=== PATIENT | male | born 1990 | race African-American/Black ===

== ENCOUNTER 2018-09-30 07:21 | Emergency (ER) | payer BC, SELFPAY ==
[2018-09-30] MEDS ORDERED: Ketorolac Tromethamine 30 MG/ML VIAL ONE (07:57)
== END 2018-09-30 08:20 | disposition home or self-care (01) ==
LOC: ERS 07:21
DX: K04.7 Periapical abscess without sinus (principal); K02.9 Dental caries, unspecified
CPT/HCPCS: 96372; J1885

== ENCOUNTER 2021-11-09 20:14 | Emergency (ER) | payer BC ==
[2021-11-09] MEDS ORDERED: Boostrix 0.5 ML (Tdap) VIAL ONE (22:23)
== END 2021-11-09 22:32 | disposition home or self-care (01) ==
LOC: ERS 20:14
DX: S01.111A Laceration without foreign body of right eyelid and periocular area, initial encounter (principal); W26.8XXA Contact with other sharp object(s), not elsewhere classified, initial encounter
CPT/HCPCS: 12011; 90471; 90715

== ENCOUNTER 2023-03-15 18:47 | Emergency (ER) | payer SELFPAY ==
[2023-03-15] MEDS ORDERED: Bicillin LA 1.2 MILLION UNITS/2 ML SYRINGE ONE (20:45)
== END 2023-03-15 21:17 | disposition home or self-care (01) ==
LOC: ERS 18:47
DX: J02.0 Streptococcal pharyngitis (principal); R07.0 Pain in throat; F17.210 Nicotine dependence, cigarettes, uncomplicated
CPT/HCPCS: 87430; 87804; 96372; 99283; J0561